=== PATIENT | female | born 1955 | race Caucasian/White ===

== ENCOUNTER 2024-04-19 09:30 | Outpatient (RCR) | payer MEDICARE, OTHER, SELFPAY | END 2024-07-07 12:49 | disposition home or self-care (01) | PROVIDERS: PCP Student in an Organized Health Care Education/Training Program; Visit Provider Student in an Organized Health Care Education/Training Program | DX: N39.46 Mixed incontinence (principal); R27.8 Other lack of coordination; M54.6 Pain in thoracic spine; Z51.89 Encounter for other specified aftercare | CPT/HCPCS: 97110; 97162; 97535 ==